=== PATIENT | male | born 2000 | race African-American/Black ===

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

== ENCOUNTER 2020-03-10 02:54 | Emergency (ER) | payer SELFPAY ==
[~2020-03-10] VITALS: Ht 180.3 cm; Wt 70.4 kg
[2020-03-10] MEDS ORDERED: AMOXICILLIN500 M2 PO (03:09)
[2020-03-10 03:33] VITALS: BP 144/84
== END 2020-03-10 03:33 | disposition home or self-care (01) | DRG 153 ==
LOC: ED 02:54
DX: J03.90 Acute tonsillitis, unspecified (principal)

== ENCOUNTER 2020-03-10 11:56 | Emergency (ER) | payer SELFPAY ==
[~2020-03-10] VITALS: Ht 180.3 cm; Wt 70.0 kg
[~2020-03-10 11:56] MED LIST changes: +AMOXICILLIN500 M2 PO
[2020-03-10 13:19] LABS: HEMOGLOBIN 13.1 g/dl (14.0-18.0); IMMATURE GRANULOCYTES 0.3 % (0.0-5.0); MEAN CORPUSCULAR HGB 27.9 pG CALC (26.0-32.0); MEAN CORPUSCULAR HGB CONC 31.3 g/dL CAL (32.0-36.0); NEUT# 12.63 thou/uL (1.82-7.42); RED BLOOD COUNT 4.69 mill/uL (4.70-6.10); RED CELL DISTRI WIDTH 13.8 % (11.5-15.5)
[2020-03-10 13:31] LABS: HEMATOCRIT 41.8 % (39.0-50.0); MEAN CELL VOLUME 89.1 fL CALC (80.0-100.0)
[2020-03-10 13:41] LABS: ANION GAP 11 (6-22 (CALC)); BUN 11 mg/dL (9-20); BUN/CREATININE RATIO 17 (12-20 (CALC)); CARBON DIOXIDE 26 mmol/l (22-30); CHLORIDE 101 mmol/l (95-108); CREATININE 0.7 mg/dL (0.7-1.3); GFR > 60 ML/MIN (>=60 (CALC)); GFR FOR AFR.AMER. > 60 ML/MIN (>=60 (CALC)); POTASSIUM 3.8 mmol/l (3.5-5.1); SODIUM 135 mmol/l (137-146)
[2020-03-10 17:15] VITALS: BP 145/78
== END 2020-03-10 17:15 | disposition short-term general hospital (02) | DRG 153 ==
LOC: ED 11:56
PROVIDERS: Student in an Organized Health Care Education/Training Program
DX: J36 Peritonsillar abscess (principal); J03.90 Acute tonsillitis, unspecified
CPT/HCPCS: Q9967